=== PATIENT | female | born 1990 | race Native Hawaiian/Other Pacific Islander ===

== ENCOUNTER 2023-04-29 04:42 | Emergency (ER) | payer OTHER ==
[~2023-04-29] VITALS: Ht 167.6 cm; Wt 86.2 kg
[2023-04-29 04:45] VITALS: TEMP 97.9
[2023-04-29 05:40] LABS: PLATELET COUNT 304 K/uL (152-353)
[2023-04-29 05:50] LABS: POTASSIUM 3.8 mmol/L (3.6-5.2); SODIUM 138 mmol/L (136-145)
[2023-04-29 06:30] VITALS: BP 109/71
== END 2023-04-29 07:04 | disposition still patient (30) ==
LOC: ED 04:42
PROVIDERS: Family Medicine
DX: M54.2 Cervicalgia (principal); M25.512 Pain in left shoulder; R20.0 Anesthesia of skin
CPT/HCPCS: 36415; 80053; 80307; 81002; 81025; 83735; 84484; 85027; 93005; 99283

== ENCOUNTER 2023-05-04 22:38 | Emergency (ER) | payer OTHER ==
[~2023-05-04] VITALS: Ht 167.6 cm; Wt 85.3 kg
[2023-05-04 22:38] VITALS: TEMP 98.6
[2023-05-05 00:50] VITALS: BP 132/101
== END 2023-05-05 00:50 | disposition home or self-care (01) ==
LOC: ED 22:38
DX: M25.512 Pain in left shoulder (principal); M79.2 Neuralgia and neuritis, unspecified
CPT/HCPCS: 96372; 99283; J0696; J1885; J2270; J2360